=== PATIENT | male | born 1990 | race African-American/Black ===

== ENCOUNTER 2016-08-19 01:51 | Emergency (ER) | payer MEDICAID ==
[2016-08-19] MEDS ORDERED: PENICILLIN VK 250 MG TAB PO ONE (03:12)
[2016-08-19] MEDS ORDERED: TRAMADOL 50 MG TAB ONE (03:18)
== END 2016-08-19 03:28 | disposition home or self-care (01) ==
LOC: ER 01:51
DX: K02.9 Dental caries, unspecified (principal); F17.210 Nicotine dependence, cigarettes, uncomplicated